=== PATIENT | female | born 1965 | race Caucasian/White ===

== ENCOUNTER 2019-01-08 17:19 | Emergency (ER) | payer OTHER ==
[2019-01-08] MEDS ORDERED: Ketorolac Tromethamine 30 MG/ML VIAL ONE (17:36)
[2019-01-08 18:07] LABS: Bilirubin Negative (Negative); Blood, Urine Negative (Negative); Clarity Slightly Cloudy (Clear); Glucose, Urine (Dipstick) Negative (Negative); Leukocyte Negative (Negative); Nitrite Negative (Negative); Protein, Urine (Dipstick) Negative (Neg-Trace); Specific Gravity, Urine 1.015 (1.005-1.030); Urobilinogen 0.2 mg/dL (0.2-1.0); pH, Urine 5.5 (5.0-9.0)
--- NOTE | 2019-01-08 18:26 | RAD ---
LUMBAR SPINE THREE VIEWS: 01/08/19 INDICATION: Back pain after fall. FINDINGS: There is mild multilevel disc degeneration. Facet osteoarthritic change. No acute fracture or subluxa tion is evident. SI joints are normal appearing. IMPRESSION: Mild spondylosis of the lumbar spine. No acute osseous abnormality. POS: [facility]
== END 2019-01-08 18:13 | disposition home or self-care (01) ==
LOC: SCSER 17:19
DX: S30.0XXA Contusion of lower back and pelvis, initial encounter (principal); V89.9XXA Person injured in unspecified vehicle accident, initial encounter
CPT/HCPCS: 72100; 81003; 96372; J1885